=== PATIENT | female | born 1960 | race Caucasian/White ===

== ENCOUNTER 2017-01-16 13:17 | Emergency (ER) | payer MEDICARE, OTHER ==
[~2017-01-16 13:17] MED LIST: ACETIC ACID OT; ACTOS15 PO; ALLEGRA180 PO; ASAB PO; BACTROCR TOP; CALTRA600D PO; CARMEX T; CHOLECALCIFEROL; CITRACAL PO; DSS PO; ENABLEX15 PO; FORTEO SC; FOSAMAX70 MG PO; JANUVIA100 MG PO; MACROBID PO; MIRALAXPKT PO; MOBIC15 MG PO; MOBIC7.5 PO; NASONEX NAS; OS500+D PO; PYR200 PO; ROBITUSSN DM OR; STARLIX120 PO; STARLIX60 PO; SYN1 PO; SYN112 PO; SYN125 PO; SYNTHROID200 MCG PO; T PO; TUSSINDMSF PO; TYLENOL ARTH650 MG PO; ULTRAM50 PO; VESICARE10 MG PO; [UNRECOGNIZED DRUG - OTHER] T
== END 2017-01-16 14:36 | disposition home or self-care (01) ==
LOC: ER 13:17
DX: S83.91XA Sprain of unspecified site of right knee, initial encounter (principal); M25.521 Pain in right elbow; M25.552 Pain in left hip; E11.9 Type 2 diabetes mellitus without complications; Z88.0 Allergy status to penicillin; Z88.2 Allergy status to sulfonamides; Z79.82 Long term (current) use of aspirin; Z79.899 Other long term (current) drug therapy; W18.2XXA Fall in (into) shower or empty bathtub, initial encounter
CPT/HCPCS: 73080-RT; 73502-LT; 73560-RT; 99283; A9270-GY